=== PATIENT | female | born 1980 ===

== ENCOUNTER 2016-11-18 19:45 | Emergency (ER) | payer MEDICAID ==
[2016-11-18 19:48] VITALS: BP 106/74; PULSE 65; RESP 18; TEMP 97.8; O2SAT 100
--- NOTE | 2016-11-18 20:29 | C.PDOC ---
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 Nose bleed is atraumatic with no pain. Bleeding has spontaneously stopped. Patient denies fever, chills, URI symptoms, or any other complaints. Time Seen by Provider: 11/18/16 20:07 Chief Complaint (Nursing): ENT Problem History Per: Patient History/Exam Limitations: None Onset/Duration Of Symptoms: Hrs Current Symptoms Are (Timing): Still Present Symptoms Have Been: Continuous Severity: Mild Past Medical History Reviewed: Historical Data, Nursing Documentation, Vital Signs Vital Signs: Last Vital Signs Temp 97.8 F 11/18/16 19:46 Pulse 65 11/18/16 19:46 Resp 18 11/18/16 19:46 BP 106/74 11/18/16 19:46 Pulse Ox 100 11/18/16 20:29 Family History: States: Unknown Family Hx - Social History Hx Alcohol Use: No Hx Substance Use: No Review Of Systems Except As Marked, All Systems Reviewed And Found Negative. Constitutional: Negative for: Fever, Chills ENT: Positive for: Nose Discharge (Epistaxis). 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 Plans: Reassess. Patient is in no acute distress. Patient is afebrile with no URI symptoms. Patient was instructed to follow up with ENT specialist for further evaluation. Disposition - Disposition Referrals: Manpreet Pennington MD [Staff Provider] - Disposition: HOME/ ROUTINE Disposition Time: 20:28 Condition: STABLE Additional Instructions: Follow up with ENT specialist within 1-2 days. Return to Ed if feel worse. Instructions: Nosebleed (ED) Forms: [facility] (Slovak) Print Language: GUAMANIAN - Clinical Impression Clinical Impression: Bleeding nose - Scribe Statement The provider has reviewed the documentation as recorded by the Karlibyenifer carson All medical record entries made by the Karlibyenifer were at my direction and personally dictated by me. I have reviewed the chart and agree that the record accurately reflects my personal performance of the history, physical exam, medical decision making, and the department course for this patient. I have also personally directed, reviewed, and agree with the discharge instructions and disposition.
== END 2016-11-18 20:31 | disposition home or self-care (01) ==
LOC: C.ER 19:45
DX: R04.0 Epistaxis (principal)

== ENCOUNTER 2017-07-30 10:01 | Emergency (ER) | payer MEDICAID ==
[2017-07-30 10:22] VITALS: RESP 18
[2017-07-30 11:04] LABS: BASO % 0.6 % (0.0-2.0); EOS # 0.1 K/uL (0.0-0.7); EOS % 1.4 % (0.0-4.0); LYMPH # 1.5 K/uL (1.0-4.3); LYMPH % 19.4 % (20.0-40.0); MEAN CELL VOLUME 88.1 fL (81.0-99.0); MEAN CORPUSCULAR HGB CONC 35.2 g/dL (33.0-37.0); MEAN PLATELET VOLUME 8.8 fL (7.2-11.7); MONO # 0.4 K/uL (0.0-0.8); MONO % 5.1 % (0.0-10.0); NEUT # 5.6 K/uL (1.8-7.0); NEUT % 73.5 % (50.0-75.0); RBC 4.21 Mil/uL (3.80-5.20); RED CELL DISTRIBUTION WIDTH 14.9 % (11.5-14.5); WHITE BLOOD COUNT 7.6 K/uL (4.8-10.8)
[2017-07-30 11:13] LABS: SQUAMOUS EPITHIAL 19 /hpf (0-5); URINE BACTERIA RARE (<OCC); URINE BILIRUBIN NEGATIVE (NEGATIVE); URINE BLOOD 3+ (NEGATIVE); URINE CLARITY Hazy (Clear); URINE COLOR Yellow (YELLOW); URINE GLUCOSE (UA) NORMAL (Normal); URINE LEUKOCYTE ESTERASE NEG Leu/uL (Negative); URINE PROTEIN 1+ mg/dL (NEGATIVE); URINE UROBILINOGEN NORMAL mg/dL (0.2-1.0)
[2017-07-30 11:31] LABS: CALCIUM 8.7 mg/dl (8.6-10.4); GFR AFRICAN-AMERICAN > 60; GFR NON-AFRICAN AMERICAN > 60
[2017-07-30 11:36] LABS: ALB/GLOB RATIO 1.1 (1.0-2.1); ALBUMIN 4.2 g/dL (3.5-5.0); ALT/SGPT 15 U/L (9-52); AST/SGOT 35 U/L (14-36); BLOOD UREA NITROGEN 7 mg/dL (7-17)
--- NOTE | 2017-07-30 11:44 | C.PDOC ---
History Of Present Illness 36-year-old female, (. LMP 06/12/17), presents to the emergency department with complaints of vaginal spotting x1 day. Patient denies any nausea /vomiting, urinary symptoms, fever, chills, or any other associated symptoms. No other complaints at this time. Time Seen by Provider: 07/30/17 10:24 Chief Complaint (Nursing): Female Genitourinary History Per: Patient History/Exam Limitations: no limitations Current Symptoms Are (Timing): Still Present Severity: Moderate Past Medical History Reviewed: Historical Data, Nursing Documentation, Vital Signs Vital Signs: Last Vital Signs Temp 98.8 F 07/30/17 10:12 Pulse 72 07/30/17 10:12 Resp 18 07/30/17 10:12 BP 131/94 H 07/30/17 10:12 Pulse Ox 100 07/30/17 12:02 Family History: States: No Known Family Hx - Social History Hx Alcohol Use: No Hx Substance Use: No - Immunization History Hx Tetanus Toxoid Vaccination: Yes Hx Influenza Vaccination: Yes Hx Pneumococcal Vaccination: No Review Of Systems Constitutional: Negative for: Fever Gastrointestinal: Negative for: Vomiting Genitourinary: Positive for: Vaginal Bleeding. Negative for: Dysuria Musculoskeletal: Negative for: Back Pain Physical Exam - Physical Exam Appears: Non-toxic, No Acute Distress Skin: Normal Color, Warm, Dry, No Rash Head: Normacephalic Eye(s): bilateral: PERRL Nose: Normal Oral Mucosa: Moist Lips: Normal Appearing Neck: Normal ROM Chest: Symmetrical Cardiovascular: Rhythm Regular, No Murmur Respiratory: Normal Breath Sounds, No Accessory Muscle Use Gastrointestinal/Abdominal: Soft, No Tenderness, No Guarding, No Rebound Extremity: Normal ROM, No Deformity, No Swelling Neurological/Psych: Oriented x3, Normal Speech ED Course And Treatment - Laboratory Results Result Diagrams: 07/30/17 11:00 07/30/17 11:00 O2 Sat by Pulse Oximetry: 100 (RA) Pulse Ox Interpretation: Normal Medical Decision Making Medical Decision Making: Impression: Threatened Plan: * Bloodwork * UA * US Transvaginal * Reassess and Disposition Disposition Counseled Patient/Family Regarding: Studies Performed, Diagnosis, Need For Followup - Disposition Referrals: Ari Aguiar MD [Staff Provider] - Disposition: HOME/ ROUTINE Disposition Time: 14:02 Condition: STABLE Additional Instructions: 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 I have reviewed the chart and agree that the record accurately reflects my personal performance of the history, physical exam, medical decision making, and the department course for this patient. I have also personally directed, reviewed, and agree with the discharge instructions and disposition.
--- NOTE | 2017-07-30 12:32 | US ---
PROCEDURE: OB Pelvic Ultrasound HISTORY: Vaginal bleeding LMP: 06/12/2017 COMPARISON: None available. FINDINGS: UTERUS: There is a single intrauterine gestation ; Gestational sac: MSD = 1.79 cm = 6 weeks 1 day. Yolk sac: 0.31 cm pole: CRL = 0.66 cm = 6 weeks 4 days Average ultrasound age: 6 weeks 3 days 0 weeks 3 days Heart rate: 117 bpm. Jael-gestational hemorrhage: None. Date of delivery (Ultrasound estimated) : 03/22/2018 Uterus measures 10.8 x 5.4 x 6.1 cm. Normal in size and appearance. CERVIX: Measures 4.17 cm. Long and closed. No cervical abnormality seen. RIGHT OVARY: Measures 3.3 x 1.8 x 3.3 cm. No mass lesion. Normal flow. LEFT OVARY: Measures 2.6 x 1.5 x 2.4 cm. No solid mass. Normal flow. Small cyst (possibly representing corpus luteum cyst of ) measuring 2.0 x 1.1 x 1.8 cm FREE FLUID: None. OTHER FINDINGS: None. IMPRESSION: Single living intrauterine gestation with average ultrasound age of approximately 6 weeks 3 days 0 weeks 3 days heart rate detected at 117 BPM
[2017-07-30 14:14] VITALS: BP 126/73; PULSE 78; TEMP 98.5; O2SAT 98
== END 2017-07-30 14:14 | disposition home or self-care (01) ==
LOC: C.ER 10:01
DX: O20.0 Threatened abortion (principal); Z3A.01 Less than 8 weeks gestation of pregnancy

== ENCOUNTER 2018-03-11 04:35 | Inpatient (IN) | payer MEDICAID ==
[2018-03-11 06:04] VITALS: BMI 21.4
[2018-03-11] MEDS ORDERED: Lactated Ringer's 1,000 ML IV ONE (06:08)
[2018-03-11] MEDS ORDERED: Oxytocin 30 UNIT 30 UNITS/500 ML BAG IV ONE ×3 (06:08→11:58)
--- NOTE | 2018-03-11 06:37 | OBHP ---
Datetime: 03/11/2018 06:23 IP Adm Impression: Term, intrauterine ; No Active Labor; Ruptured Membranes IP Admit Plan: Admit to unit; Initiate labor augmentation protocol Admit Comment, IP Provider: 41 yo female with an IUP at 38.4 weeks and presented with c/o o f gush of clear fluid at about 3:30 AM today with onset of irregular contractions. Admits to adequate FM. Denies VB or VD. PMHx: +Hypothyroidism PSHx Negative Meds PNV and Levothyroxine 100 mcg daily NKDA Social Denies x 3 OB Hx 3 at term and without complications A/P Term SROM with clear fluid AMA Hx of Hypothyroidism and on meds NST Non-reactive Drinks little to no water Will admit for anticipated vaginal delivery IV fluid bolus Will start Pitocin for augmentation Considering an Epidural Hope for a vaginal delivery Pelvic Type - PN: Adequate Extremities - PN: Normal Abdomen - PN: Normal Back - PN: Normal Breast - PN: Not Done Lungs - PN: Normal Heart - PN: Normal Thyroid - PN: Normal Neurologic - PN: Normal HEENT - PN: Normal General - PN: Normal Presentation-Admit: Vertex FHR - Baseline A Provider: 160 Amniotic Fluid Color, Provider: Clear Membranes, Provider: Ruptured Gestation - Est Wks by US: 38.4 Nitrazine Provider: Positive IP Hx Assessment: care records available and reviewed EGA AdmitDate IP: 38.4 Vital Signs Provider: Within Normal Limits IP Chief Complaint: Uterine contractions; Suspected ruptured membranes NICHD Variability Prov Fetus A: Moderate 6-25bpm FHR Category Provider Fetus A: Category II NICHD Decel Fetus A IP Provider: None Dilatation, Provider: 3 Effacement, Provider: 70 Station, Provider: -3 Genitourinary Exam: Normal DTRs - PN: Normal
[2018-03-11 06:58] LABS: BASO % 0.6 % (0.0-2.0); EOS # 0.1 K/uL (0.0-0.7); EOS % 1.8 % (0.0-4.0); HEMOGLOBIN 12.7 g/dL (11.0-16.0); LYMPH # 1.4 K/uL (1.0-4.3); LYMPH % 18.6 % (20.0-40.0); MEAN CELL VOLUME 91.6 fL (81.0-99.0); MEAN CORPUSCULAR HEMOGLOBIN 30.6 pg (27.0-31.0); MEAN CORPUSCULAR HGB CONC 33.5 g/dL (33.0-37.0); MEAN PLATELET VOLUME 10.4 fL (7.2-11.7); MONO # 0.4 K/uL (0.0-0.8); MONO % 5.2 % (0.0-10.0); NEUT # 5.4 K/uL (1.8-7.0); NEUT % 73.8 % (50.0-75.0); NRBC % 0.1 % (0.0-2.0); RBC 4.13 Mil/uL (3.80-5.20); WHITE BLOOD COUNT 7.4 K/uL (4.8-10.8)
[2018-03-11 07:03] LABS: SQUAMOUS EPITHIAL 1 /hpf (0-5); URINE BACTERIA RARE (<OCC); URINE BILIRUBIN NEGATIVE (NEGATIVE); URINE BLOOD 2+ (NEGATIVE); URINE CLARITY Clear (Clear); URINE COLOR Yellow (YELLOW); URINE GLUCOSE (UA) NORMAL (Normal); URINE LEUKOCYTE ESTERASE NEG Leu/uL (Negative); URINE PROTEIN NEGATIVE (NEGATIVE); URINE UROBILINOGEN NORMAL mg/dL (0.2-1.0)
[2018-03-11 07:08] LABS: ALBUMIN 3.3 g/dL (3.5-5.0); ALT/SGPT 23 U/L (9-52); AST/SGOT 20 U/L (14-36); BLOOD UREA NITROGEN 11 mg/dL (7-17); GFR NON-AFRICAN AMERICAN > 60
[2018-03-11] MEDS ORDERED: Lactated Ringer's 1,000 ML IV SCH (07:10)
[2018-03-11 07:25] LABS: FREE T4 0.86 ng/dL (0.78-2.19)
--- NOTE | 2018-03-11 10:43 | OBPN ---
Datetime: 03/11/2018 10:39 IP Progress Impression: Normal progression of labor IP Procedures: Sterile Vag Exam; Epidural Placement IP Progress Plan: Continue present management; Anesthesia consult IP Progress Note Comment: admitted with SROM at 38+4 weeks SVE /- plan for epidural will start pitocin if needed for augmentation patient expressed understanding for plan of care, RN at bedside FHR Category Provider Fetus A: Category I Datetime: 03/11/2018 06:23 Nitrazine Provider: Positive Membranes, Provider: Ruptured Amniotic Fluid Color, Provider: Clear FHR - Baseline A Provider: 160 Gestation - Est Wks by US: 38.4 Presentation-Admit: Vertex Vital Signs Provider: Within Normal Limits NICHD Variability Prov Fetus A: Moderate 6-25bpm Dilatation, Provider: 3 Effacement, Provider: 70 Station, Provider: -3 NICHD Decel Fetus A IP Provider: None
[2018-03-11] MEDS ORDERED: Fentanyl/Bupivacaine HCl 250 ML EPI ONE (10:58)
--- NOTE | 2018-03-11 16:00 | OBPN ---
Datetime: 03/11/2018 15:57 IP Progress Impression: Normal progression of labor IP Procedures: Sterile Vag Exam IP Progress Plan: Continue present management IP Progress Note Comment: continue augmentation, pitocin at 2mU epidural in place EFM reassuring [place] in place continue current management Vital Signs Provider: Reviewed; Within Normal Limits FHR Category Provider Fetus A: Category I Dilatation, Provider: 10 Effacement, Provider: 100 Station, Provider: -1
--- NOTE | 2018-03-11 17:13 | OBDS ---
DELIVERY PERSONNEL Delivery Doctor: Dr. Amaya Armature Winder Repair: Hazel Starks RN Anesthesiologist: Dr. Hernández MATERNAL INFORMATION Delivery Anesthesia: Epidural Medications in Delivery: pitocin Estimated Blood Loss (ml): 250 Placenta Cultured: No Maternal Complications: None Provider Comments: patient delievered viable female with apgars 9/9. body delivered atraumati prashanth. no nuchal cord. delivered in ASHISH position. baby placed on maternal abdomen, mouth and n ose suctioned. cord clamped by myself and cut by father. repair as above. EBL 250cc. LABOR SUMMARY EDC: 03/21/2018 00:00 No. Babies in Womb: 1 Attempted: No Labor Anesthesia: Epidural LABOR INFORMATION Onset of Labor: 03/11/2018 04:45 Complete Dilatation: 03/11/2018 15:52 Oxytocin: Augmentation Group B Beta Strep: Negative Steroids Given: None Reason Steroids Not Administered: Not Applicable MEMBRANES Membranes Rupture Method: Spontaneous Rupture of Membranes: 03/11/2018 03:30 Length of Rupture (hrs): 13.43 Amniotic Fluid Color: Clear Amniotic Fluid Amount: Moderate Amniotic Fluid Odor: Normal STAGES OF LABOR Stage 1 hrs: 11 Stage 1 min: 7 Stage 2 hrs: 1 Stage 2 min: 4 Stage 3 hrs: 0 Stage 3 min: 5 Total Time in Labor hrs: 12 Total Time in Labor min: 16 VAGINAL DELIVERY Laceration Extension: First Degree Laceration Type: Vaginal Laceration Repair Note: 2-0 chromic used in running fashion to repair right sided vaginal laceration . no other lacerations noted. hemostasis adequete. BABY A INFORMATION Infant Delivery Date/Time: 03/11/2018 16:56 Method of Delivery: Vaginal Born in Route : No Forceps: N/A SHOULDER DYSTOCIA BABY A Delivery Date/Time: 03/11/2018 16:56 PRESENTATION/POSITION BABY A Presentation: Cephalic Cephalic Presentation: Vertex Vertex Position: Left Occipital Anterior Breech Presentation: N/A PLACENTA INFORMATION BABY A Placenta Delivery Time : 03/11/2018 17:01 Placenta Method of Delivery: Spontaneous Placenta Status: Delivered SCORES BABY A Heart Rate 1 min: >100 bpm Resp Effort 1 min: Good Cry Reflex Irritability 1 min: Cough or Sneeze or Pulls Away Muscle Tone 1 min: Active Motion Color 1 min: Body [place], Extremities Blue Resuscitation Effort 1 min: N/A SCORE 1 MIN: 9 Heart Rate 5 min: >100 bpm Resp Effort 5 min: Good Cry Reflex Irritability 5 min: Cough or Sneeze or Pulls Away Muscle Tone 5 min: Active Motion Color 5 min: Body [place], Extremities Blue Resuscitation Effort 5 min: N/A SCORE 5 MIN: 9 INFORMATION BABY A Gestational Age at Delivery: 38.4 Gestational Status: Term CORD INFORMATION BABY A No. Cord Vessels: 3 Nuchal Cord : N/A Cord Blood Taken: Yes Infant Suction: None; Nose ASSESSMENT BABY A Complications: None Physical Findings at Delivery: Within Normal Limits Infant Respirations: Appears Normal [facility] P[facility]/ALS Called : No Transferred To: Remains with Mother
[2018-03-12] MEDS ORDERED: Benzocaine/Menthol 20%-0.5% Topical Spray (60 ml) TOP PRN (01:20)
[2018-03-12] MEDS: Levothyroxine 100 MCG TAB PO SCH (06:44)
[2018-03-12 08:04] VITALS: RESP 18
[2018-03-12] MEDS: Multiple Vitamins Tab PO SCH (09:09)
[2018-03-12 09:10] LABS: BASO % 0.3 % (0.0-2.0); EOS # 0.1 K/uL (0.0-0.7); HEMOGLOBIN 11.3 g/dL (11.0-16.0); LYMPH # 1.3 K/uL (1.0-4.3); LYMPH % 9.8 % (20.0-40.0); MEAN CELL VOLUME 91.7 fL (81.0-99.0); MEAN CORPUSCULAR HEMOGLOBIN 30.9 pg (27.0-31.0); MEAN CORPUSCULAR HGB CONC 33.7 g/dL (33.0-37.0); MEAN PLATELET VOLUME 8.8 fL (7.2-11.7); MONO # 0.6 K/uL (0.0-0.8); MONO % 4.5 % (0.0-10.0); NEUT # 11.6 K/uL (1.8-7.0); NEUT % 84.4 % (50.0-75.0); PLATELET COUNT 231 K/uL (130-400); RBC 3.66 Mil/uL (3.80-5.20); RED CELL DISTRIBUTION WIDTH 16.2 % (11.5-14.5); WHITE BLOOD COUNT 13.7 K/uL (4.8-10.8)
--- NOTE | 2018-03-12 10:00 | OBPPN ---
Datetime: 03/12/2018 09:56 PP Pain Prov: Within normal limits PP Nausea Prov: Denies PP Abdomen/Uterus Prov: Normal PP Lochia Prov: Normal PP Impression Prov: Normal progression PP Plan Prov: Continue present management PP Progress Note Prov: A/P: s/p PPD #1 - stable, afebrile - normal lochia - + bottlefeeding - continue pp mgmt Vital Signs Provider PP: Reviewed; Within Normal Limits
[2018-03-12 10:50] LABS: BANDS 6 % (0-2); LYMPHOCYTE 8 % (20-40); MONOCYTE 4 % (0-10); NEUTROPHIL 82 % (50-75); PLATELET ESTIMATE NORMAL (NORMAL); TOTAL CELLS COUNTED 100
[2018-03-12 10:51] LABS: ANISOCYTOSIS SLIGHT
[2018-03-12 10:53] LABS: GIANT PLATELETS PRESENT; HYPOCHROMIC SLIGHT; LARGE PLATELETS PRESENT; POLYCHROMIC SLIGHT
[2018-03-12 10:54] LABS: TOXIC GRANULATION PRESENT
[2018-03-13] MEDS: Levothyroxine 100 MCG TAB PO SCH (06:23)
[2018-03-13] MEDS ORDERED: Influenza Vaccine 60 MCG/0.5 ML SYR (3 yr & up) IM ONE (10:00)
[2018-03-13] MEDS: Multiple Vitamins Tab PO SCH (10:07)
--- NOTE | 2018-03-13 10:11 | OBDCSUM ---
Datetime: 03/13/2018 08:56 Discharged to, Provider: Home Follow up at, Provider: Cam Gasca Instr Activity: Normal activity; May Shower Disch Instr Diet: Regular Discharge Diet restrict Prov: none Discharge Diagnosis, Provider: Term Delivered Discharge Time: 03/13/2018 08:58 Disch Referrals: None Disch Activity Restrictions: No exercising; No lifting; No sexual activity; Nothing in vagina - Inte rcourse, tampons, douche Discharge Comment, Provider: dc home cont pnv motrin prn f/u
--- NOTE | 2018-03-13 10:11 | OBPPN ---
Datetime: 03/13/2018 10:05 PP Pain Prov: Within normal limits PP Nausea Prov: Denies PP Flatus Prov: No PP Abdomen/Uterus Prov: Normal PP Lochia Prov: Normal PP Extremities Prov: Normal PP Impression Prov: Normal progression PP Plan Prov: Discharge PP Progress Note Prov: pt was seen at bed side, pain under control,npo n/v, tolerating deit voiding ,min lochia,flatus+ ppd#2 dc home cont pnv motrin prn f/u Vital Signs Provider PP: Reviewed; Within Normal Limits
[2018-03-13 11:15] VITALS: BP 108/67; PULSE 94; TEMP 97.2; O2SAT 97
== END 2018-03-13 11:30 | disposition home or self-care (01) | DRG 373 ==
LOC: C.EROB 04:35 → C.4D 05:50 → C.4M 20:15
PROVIDERS: ADMIT Obstetrics & Gynecology; ATTEND Obstetrics & Gynecology
PROC: 10E0XZZ Delivery of Products of Conception, External Approach (ICD-10-PCS; principal; 2018-03-11)
PROC: 0HQ9XZZ Repair Perineum Skin, External Approach (ICD-10-PCS; 2018-03-11)
DX: O99.284 Endocrine, nutritional and metabolic diseases complicating childbirth (principal); E03.9 Hypothyroidism, unspecified; O70.0 First degree perineal laceration during delivery; Z37.0 Single live birth; Z3A.38 38 weeks gestation of pregnancy; Z79.890 Hormone replacement therapy